=== PATIENT | female | born 1970 | race Caucasian/White ===

== ENCOUNTER 2023-01-16 18:39 | Emergency (ER) | payer OTHER ==
[~2023-01-16] VITALS: Ht 149.9 cm; Wt 52.2 kg
[2023-01-16 19:40] VITALS: BP_SYST 150; PULSE 80; RESP 17; TEMP 98; O2SAT 98
[2023-01-16] MEDS ORDERED: ONDANSETRON 4 MG ODT TAB PO ONE (19:45)
[2023-01-16] MEDS ORDERED: LIDOCAINE PATCH 5% 1 EA TP ONE (19:45)
[2023-01-16] MEDS ORDERED: CYCLOBENZAPRINE HCL 10 MG TABLET (FLEXERIL) PO ONE (19:45)
[2023-01-16] MEDS ORDERED: ACETAMINOPHEN 500 MG TABLET PO ONE (19:45)
[2023-01-16] MEDS ORDERED: KETOROLAC TROMETHAMINE 30 MG VIAL IM ONE (19:45)
[2023-01-16] MEDS ORDERED: CYCL10TA24 PO (21:08)
[2023-01-16] MEDS ORDERED: [UNRECOGNIZED DRUG - CODE] TP (21:08)
[2023-01-16] MEDS ORDERED: ACET325T53 PO (21:08)
[2023-01-16] MEDS ORDERED: IBUP-1969 PO (21:08)
--- NOTE | 2023-01-16 22:33 | NUR ---
Patient ambulated to H1 in stable condition.
--- NOTE | 2023-01-16 22:35 | NUR ---
Dr. Culver at bedside discussing diagnostics & Tx plan and will discharge patient home.
[2023-01-16 22:45] VITALS: BP_SYST 140; PULSE 77; RESP 16; TEMP 98.2; O2SAT 98
--- NOTE | 2023-01-16 22:45 | NUR ---
DCI & Rx given to patient. Patient acknowledges & understand DCI & Rx. Patient ambulated OTD in stable condition.
== END 2023-01-16 22:45 | disposition home or self-care (01) ==
LOC: SED 18:39
DX: S13.4XXA Sprain of ligaments of cervical spine, initial encounter (principal); S43.401A Unspecified sprain of right shoulder joint, initial encounter; S43.402A Unspecified sprain of left shoulder joint, initial encounter; S09.90XA Unspecified injury of head, initial encounter; E11.9 Type 2 diabetes mellitus without complications; Z79.899 Other long term (current) drug therapy; W01.0XXA Fall on same level from slipping, tripping and stumbling without subsequent striking against object, initial encounter; Y93.89 Activity, other specified; Y92.89 Other specified places as the place of occurrence of the external cause; Y99.8 Other external cause status
CPT/HCPCS: 99285; 70450; 71046; 72125; 76376; 96372; Q0162; J1885

== ENCOUNTER 2023-01-22 18:09 | Emergency (ER) | payer OTHER ==
[~2023-01-22] VITALS: Ht 147.3 cm; Wt 51.3 kg
[~2023-01-22 18:09] MED LIST: ACET325T53 PO; CYCL10TA24 PO; IBUP-1969 PO; [UNRECOGNIZED DRUG - CODE] TP
[2023-01-22 18:46] VITALS: BP_SYST 117; PULSE 86; RESP 18; TEMP 97; O2SAT 97
--- NOTE | 2023-01-22 18:46 | NUR ---
Patient triaged and placed in waiting room. VSS and patient appears in no acute distress at this time. Accompanied by SELF, awaiting available bed, and MD notified of need for MSE.
--- NOTE | 2023-01-22 20:15 | NUR ---
Patient to ER bed 8 to gown for evaluation. Side rails up. Report given to KAILYN ESPINO.
--- NOTE | 2023-01-22 20:23 | NUR ---
PT BIB FROM HOME C/O WORSENING PAIN FROM MECHANICAL FALL ON 01/16. PT STATES PAIN HAS INCREASED IN HEAD AND NECK AREA X 2 DAYS. PT STATES WORK NURSE ADVISED SHE VISIT THE ED. PT STATES PAIN INCREASES WITH MOVEMENT. PT IS AA0 X4 RESTING IN BED WITH RAILS UP VSS
--- NOTE | 2023-01-22 21:02 | NUR ---
ER Dr. WILDER at bedside examining patient.
[2023-01-22] MEDS ORDERED: HYDR-3917 PO (21:16)
[2023-01-22 21:37] VITALS: BP_SYST 129; PULSE 70; RESP 18; O2SAT 97
--- NOTE | 2023-01-22 21:37 | NUR ---
Patient given written and verbal discharge instructions and verbalizes understanding. ER DR WILDER discussed with patient the results and treatment provided. Patient in stable condition. ID arm band removed. Rx of NORCO given. Patient educated on pain management and to follow up with PMD. Pain Scale 2/10. Opportunity for questions provided and answered. Medication side effect fact sheet provided.
== END 2023-01-22 21:37 | disposition home or self-care (01) ==
LOC: SED 18:09
DX: S13.4XXA Sprain of ligaments of cervical spine, initial encounter (principal); E11.9 Type 2 diabetes mellitus without complications; Z79.899 Other long term (current) drug therapy; W19.XXXA Unspecified fall, initial encounter; Y93.89 Activity, other specified; Y92.89 Other specified places as the place of occurrence of the external cause; Y99.8 Other external cause status
CPT/HCPCS: 99283